=== PATIENT | male | born 1955 | race Caucasian/White ===

== ENCOUNTER → 2016-12-24 | Outpatient (CLI) | payer OTHER ==
[~2016-12-24] MED LIST: ASPIRIN325 MG PO; BENADRYL 50MG C50 MG PO; COZAAR100 MG PO; DUONEB; FERROUS SULFAT325 MG PO; FUROSEMIDE40 MG PO; HYDRALAZINE HC100 MG PO; TOPAMAX25 MG PO; VITAMIN D1000 UNI1 PO; ZYLOPRIM 100 M100 MG PO
== END ==
LOC: SLEEP 21:30
DX: G47.30 Sleep apnea, unspecified (principal)

== ENCOUNTER → 2017-01-08 | Outpatient (CLI) | payer OTHER | LOC: LAB 06:13 | PROVIDERS: Surgery | DX: I89.0 Lymphedema, not elsewhere classified (principal); L98.9 Disorder of the skin and subcutaneous tissue, unspecified | CPT/HCPCS: 36415; 80053; 82951; 82952; 84134 ==

== ENCOUNTER → 2017-01-23 | Outpatient (CLI) | payer OTHER | LOC: US 13:30 → KOH-I 13:34 → US 13:34 | DX: N18.3 Chronic kidney disease, stage 3 (moderate) (principal); K76.0 Fatty (change of) liver, not elsewhere classified | CPT/HCPCS: 76775 ==